=== PATIENT | male | born 1945 | race Caucasian/White ===

== ENCOUNTER 2017-01-05 12:19 | Day surgery (SDC) | payer MEDICARE, BC ==
[2017-01-02 14:59] LABS: BLOOD UREA NITROGEN 18 mg/dL (7-18)
[2017-01-02 15:02] LABS: ASPARTATE AMINO TRANSFERASE 27 U/L (15-37)
[~2017-01-05] VITALS: Ht 170.2 cm; Wt 81.0 kg
[~2017-01-05 12:19] MED LIST: ALLO300T PO; AZEL137S4 NAS; BUPIVACAINE/PF 0.5% ONE; BUPIVACAINE/PF-EPI 0.5% 1:200K ONE; FENTANYL PF 250 MCG/5ML ONE; FLUT1DIS3 INH; LIDOCAINE/PF 1%-EPI 1:200K, 30ML ONE; LOSA1TAB17 PO; PRAV10TA2 PO; SERT50TA5 PO
[2017-01-05 12:45] VITALS: BP 169/95
[2017-01-05] MEDS ORDERED: LIDOCAINE 1%, 2ML ONE (12:53)
[2017-01-05] MEDS ORDERED: OXYcodone 5 MG/5 ML ORAL.SOL UDC PO PRN (13:30)
[2017-01-05] MEDS ORDERED: FENTANYL PF 100 MCG/2ML IV PRN (13:30)
[2017-01-05] MEDS ORDERED: hydrALAzine 20 MG/ML, 1ML IV PRN (13:30)
[2017-01-05] MEDS ORDERED: LABETALOL 5MG/ML, 20ML IV PRN (13:30)
[2017-01-05] MEDS ORDERED: ACETAMINOPHEN 325 MG TABLET PO PRN (13:30)
[2017-01-05] MEDS ORDERED: EPHEDRINE 50 MG/ML, 1ML IVPush PRN (13:30)
[2017-01-05] MEDS ORDERED: ONDANSETRON 2MG/ML, 2ML IVPush PRN (13:30)
[2017-01-05] MEDS ORDERED: METOPROLOL 1 MG/ML, 5ML IV PRN (13:30)
[2017-01-05] MEDS ORDERED: HYDROmorphone 1 MG/ML, 1ML IV PRN (13:30)
[2017-01-05] MEDS ORDERED: ALBUTEROL SULFATE 2.5 MG/3 ML NPPB PRN (13:30)
[2017-01-05] MEDS ORDERED: GLYCOPYRROLATE 0.2MG/1ML ONE (13:46)
[2017-01-05] MEDS ORDERED: NEOSTIGMINE 1 MG/ML, 10ML ONE (13:46)
[2017-01-05] MEDS ORDERED: CEFAZOLIN 1,000 MG ONE (13:46)
[2017-01-05] MEDS ORDERED: DEXAMETHASONE 4 MG/ML, 5ML ONE (13:46)
[2017-01-05] MEDS ORDERED: ROCURONIUM 10 MG/ML ONE (13:46)
[2017-01-05] MEDS ORDERED: METOCLOPRAMIDE 5 MG/ML, 2ML ONE (13:46)
[2017-01-05] MEDS ORDERED: PROPOFOL 10 MG/ML, 20ML ONE (13:46)
[2017-01-05] MEDS ORDERED: ONDANSETRON 2MG/ML, 2ML ONE (13:46)
[2017-01-05] MEDS ORDERED: BUPIVACAINE/PF-EPI 0.5% 1:200K INFIL ONE (14:08)
[2017-01-05] MEDS ORDERED: LIDOCAINE 1%-EPI 1:100K, 30ML INFIL ONE (14:09)
[2017-01-05] MEDS ORDERED: OXYcodone 5 MG/5 ML ORAL.SOL UDC ONE (16:03)
[2017-01-05] MEDS ORDERED: ACETAMINOPHEN 650 MG/20.3 ML UDC ONE (16:03)
[2017-01-05] MEDS ORDERED: TEMPLATE NON-FORMULARY MED. (Azelastine Hcl Nasal 1 SPRAY) NAS SCH (21:00)
[2017-01-05] MEDS ORDERED: TEMPLATE NON-FORMULARY MED. (Fluticasone/Salmeterol** (Advair 250-50 Diskus**) 1 PUFF) INH SCH (21:00)
[2017-01-05] MEDS ORDERED: PRAVASTATIN SODIUM 10 MG PO SCH (21:00)
[2017-01-06] MEDS ORDERED: TEMPLATE NON-FORMULARY MED. (Losartan/Hydrochlorothiazide** (Losartan-Hctz 100-25 Mg Tab PO SCH (09:00)
[2017-01-06] MEDS ORDERED: ALLOPURINOL 300 MG TABLET PO SCH (09:00)
[2017-01-06] MEDS ORDERED: SERTRALINE 50MG TABLET PO SCH (09:00)
== END 2017-01-05 18:00 | disposition home or self-care (01) ==
LOC: OUT 12:19
PROVIDERS: ATTEND Orthopaedic Surgery
DX: S46.011A Strain of muscle(s) and tendon(s) of the rotator cuff of right shoulder, initial encounter (principal); S43.431A Superior glenoid labrum lesion of right shoulder, initial encounter; M19.011 Primary osteoarthritis, right shoulder; M65.811 Other synovitis and tenosynovitis, right shoulder; S46.211A Strain of muscle, fascia and tendon of other parts of biceps, right arm, initial encounter; M75.41 Impingement syndrome of right shoulder; I10 Essential (primary) hypertension; E78.5 Hyperlipidemia, unspecified; J45.909 Unspecified asthma, uncomplicated; I47.1 Supraventricular tachycardia; Z88.6 Allergy status to analgesic agent; Z87.891 Personal history of nicotine dependence; Z72.89 Other problems related to lifestyle; Z82.49 Family history of ischemic heart disease and other diseases of the circulatory system; Z82.61 Family history of arthritis; X50.9XXA Other and unspecified overexertion or strenuous movements or postures, initial encounter; Y93.73 Activity, racquet and hand sports; Y92.9 Unspecified place or not applicable; Y99.9 Unspecified external cause status
CPT/HCPCS: 29823; 29824; 29826; 29827; 29828; 36415; 80053; 93005; J0690; J1100; J2405; J2704; J2710; J2765; J3010; J3490

== ENCOUNTER 2019-08-02 12:00 | Day surgery (SDC) | payer BC, MEDICARE ==
[2019-08-01 14:14] LABS: ALANINE AMINOTRANSFERASE 38 U/L (12-78); ALBUMIN 3.9 g/dL (3.4-5.0); ANION GAP 9 mmol/L (5-15); CALCIUM 9.7 mg/dL (8.5-10.1); CHLORIDE 106 mmol/L (98-107); CREATININE 0.98 mg/dL (0.7-1.3)
[2019-08-01 14:16] LABS: ALKALINE PHOSPHATASE 82 U/L (45-117); BILIRUBIN,TOTAL 0.5 mg/dL (0.2-1.0); TOTAL PROTEIN 7.3 g/dL (6.4-8.2)
[~2019-08-02] VITALS: Ht 170.2 cm; Wt 79.6 kg
[~2019-08-02 12:00] MED LIST changes: +ASPI81TA45 PO; +B CO1TAB14 PO; -BUPIVACAINE/PF 0.5% ONE; -BUPIVACAINE/PF-EPI 0.5% 1:200K ONE; +CAYE450C4 PO; +CETI-158 PO; +CHOL200024 PO; +CHRO1TAB7 PO; +CIDE600C PO; +CINNAMON PO; +COCO1000 PO; +CYAN50008 PO; -FENTANYL PF 250 MCG/5ML ONE; +FISH OIL PO; +FLAX10004 PO; +GRAP50CA3 PO; +INDO50CA15 PO; -LIDOCAINE/PF 1%-EPI 1:200K, 30ML ONE; -LOSA1TAB17 PO; +LOSA1TAB22 PO; +MAGN1POW13 PO; +POTA10TA31 PO; +SERT50TA28 PO; -SERT50TA5 PO; +TURMERIC PO; +UBID100C10 PO
[2019-08-02] MEDS ORDERED: ACETAMINOPHEN 500 MG TABLET PO STA (12:15)
[2019-08-02] MEDS ORDERED: LACTATED RINGERS 1,000 ML IV ONE (12:16)
[2019-08-02 12:33] VITALS: BP 129/75
[2019-08-02] MEDS ORDERED: LIDOCAINE-MPF 2% ,5ML ONE (13:05)
[2019-08-02] MEDS ORDERED: SUCCINYLCHOLINE 20 MG/ML, 10ML ONE (13:05)
[2019-08-02] MEDS ORDERED: FENTANYL PF 250 MCG/5ML ONE (13:05)
[2019-08-02] MEDS ORDERED: PROPOFOL 10 MG/ML, 20ML ONE (13:05)
[2019-08-02] MEDS ORDERED: ONDANSETRON 2MG/ML, 2ML ONE ×2 (13:05→15:41)
[2019-08-02] MEDS ORDERED: DEXAMETHASONE 4 MG/ML, 1ML ONE ×2 (13:05)
[2019-08-02] MEDS ORDERED: OXYMETAZOLINE NASAL SPRAY 0.05%, 15ML ONE (14:15)
[2019-08-02] MEDS ORDERED: LIDOCAINE 1%-EPI 1:100K, 20ML ONE ×2 (14:15→15:27)
[2019-08-02] MEDS ORDERED: COCAINE TOPICAL SOLN 4%, 4ML ONE ×2 (14:15→14:56)
[2019-08-02] MEDS ORDERED: THROMBIN 5,000 UNIT VIAL TP ONE (14:15)
[2019-08-02] MEDS ORDERED: NEOSPORIN OINT, 15GM ONE (14:15)
[2019-08-02] MEDS ORDERED: FLUORESCEIN SODIUM 500 MG/5 ML ONE (14:15)
[2019-08-02] MEDS ORDERED: EPHEDRINE 50 MG/ML, 1ML IVPush PRN (14:30)
[2019-08-02] MEDS ORDERED: MEPERIDINE/PF 25MG/ML,1ML IVPush PRN (14:30)
[2019-08-02] MEDS ORDERED: HYDROmorphone 2 MG/ML, 1ML IVPush PRN (14:30)
[2019-08-02] MEDS ORDERED: PROMETHAZINE 25 MG/ML, 1ML IV PRN (14:30)
[2019-08-02] MEDS ORDERED: LABETALOL 5MG/ML, 20ML IV PRN (14:30)
[2019-08-02] MEDS ORDERED: FENTANYL PF 100 MCG/2ML IV PRN (14:30)
[2019-08-02] MEDS ORDERED: OXYcodone 5 MG/5 ML ORAL.SOL UDC PO PRN (14:30)
[2019-08-02] MEDS ORDERED: hydrALAzine 20 MG/ML, 1ML IV PRN (14:30)
[2019-08-02] MEDS ORDERED: ONDANSETRON 2MG/ML, 2ML IV PRN (14:30)
[2019-08-02] MEDS ORDERED: CEFAZOLIN 1,000 MG ONE (14:41)
[2019-08-02] MEDS ORDERED: EPHEDRINE 50 MG/ML, 1ML ONE (14:57)
[2019-08-02] MEDS ORDERED: KETOROLAC 30 MG/1 ML ONE (14:57)
[2019-08-02] MEDS ORDERED: FENTANYL PF 100 MCG/2ML ONE (16:43)
[2019-08-02] MEDS ORDERED: DIPHENHYDRAMINE 50 MG/ML, 1ML IVPush PRN (19:30)
[2019-08-02] MEDS ORDERED: ONDANSETRON 2MG/ML, 2ML IVPush PRN (19:30)
[2019-08-02] MEDS ORDERED: CYANOCOBALAMIN 1,000 MCG TABLET PO SCH (21:00)
[2019-08-02] MEDS ORDERED: PRAVASTATIN 20 MG TABLET PO SCH (21:00)
[2019-08-02] MEDS ORDERED: SODIUM CHLORIDE NASAL SPRAY 45ML BOTTLE NAS SCH (21:00)
[2019-08-03] MEDS ORDERED: CHOLECALCIFEROL 1,000 UNIT TABLET PO SCH (09:00)
[2019-08-03] MEDS ORDERED: LOSARTAN 50MG TABLET PO SCH (09:00)
[2019-08-03] MEDS ORDERED: POTASSIUM CHLORIDE 10 MEQ TABLET.ER PO SCH (09:00)
[2019-08-03] MEDS ORDERED: HYDROCHLOROTHIAZIDE 25 MG TABLET PO SCH (09:00)
[2019-08-03] MEDS ORDERED: ALLOPURINOL 300 MG TABLET PO SCH (09:00)
[2019-08-03] MEDS ORDERED: CETIRIZINE 10 MG TABLET PO SCH (09:00)
[2019-08-04] MEDS ORDERED: MULTIVITS,STRESS FORMULA 1 TABLET PO SCH (09:00)
== END 2019-08-02 21:23 | disposition home or self-care (01) ==
LOC: OUT 12:00 → 4NE 18:55 → OUT 21:23
PROVIDERS: ATTEND Specialist
DX: J32.2 Chronic ethmoidal sinusitis (principal); J34.2 Deviated nasal septum; J34.3 Hypertrophy of nasal turbinates; J34.89 Other specified disorders of nose and nasal sinuses; G47.33 Obstructive sleep apnea (adult) (pediatric); I10 Essential (primary) hypertension; E78.5 Hyperlipidemia, unspecified; M10.9 Gout, unspecified; F41.9 Anxiety disorder, unspecified; Z79.82 Long term (current) use of aspirin; Z79.899 Other long term (current) drug therapy; Z88.5 Allergy status to narcotic agent
CPT/HCPCS: 30465; 30520; 30802; 31240; 31253; 31267; 36415; 80053; 88304; 88311; 93005; C1763; C1776; J0330; J0690; J1100; J1885; J2405; J2704; J3010; J3490; G0378

== ENCOUNTER 2020-12-17 08:55 | Observation (INO) | payer MEDICARE ==
[~2020-12-17] VITALS: Ht 170.2 cm; Wt 76.5 kg
[~2020-12-17 08:55] MED LIST changes: -CYAN50008 PO; +CYAN50009 PO
[2020-12-17] MEDS ORDERED: SERT100T32 PO (09:38)
[2020-12-17] MEDS ORDERED: AMLO-150 PO (09:38)
[2020-12-17 09:46] LABS: BASOPHILS % (AUTO) 0 % (0-1); EOSINOPHILS % (AUTO) 3 % (1-7); LYMPHOCYTES % (AUTO) 30 % (22-44); MEAN CORPUSCULAR HEMOGLOBIN 30.9 pg (27.5-34.5); MEAN CORPUSCULAR HGB CONC 33.8 g/dL (33.2-36.2); MEAN PLATELET VOLUME 8.2 fL (7.4-10.4); MONOCYTES % (AUTO) 11 % (2-9); NEUTROPHILS % (AUTO) 56 % (42-75); PLATELET COUNT 213 x10^3/uL (130-400); RED BLOOD COUNT 4.86 x10^6/uL (4.38-5.82); RED CELL DISTRIBUTION WIDTH 13.2 % (9.4-14.8)
[2020-12-17 09:56] LABS: ANION GAP 3 mmol/L (5-15); CALCIUM 9.6 mg/dL (8.5-10.1); CHLORIDE 106 mmol/L (98-107); CREATININE 0.86 mg/dL (0.7-1.3)
[2020-12-17 10:05] LABS: MD SCAN
[2020-12-17] MEDS ORDERED: MIDAZOLAM 1 MG/ML, 2ML ONE (10:27)
[2020-12-17] MEDS ORDERED: FENTANYL PF 100 MCG/2ML ONE ×3 (10:27→12:58)
[2020-12-17] MEDS ORDERED: LIDOCAINE 2%, 20ML ONE (10:27)
[2020-12-17] MEDS ORDERED: MIDAZOLAM 1 MG/ML, 5ML ONE ×2 (12:54→12:58)
[2020-12-17] MEDS ORDERED: LIDOCAINE 1%, 20ML ONE (12:54)
[2020-12-17] MEDS ORDERED: BIVALIRUDIN 250 MG ONE ×2 (12:54→12:58)
[2020-12-17] MEDS ORDERED: PRASUGREL 10 MG TABLET ONE ×2 (12:54→12:59)
[2020-12-17] MEDS ORDERED: TICAGRELOR 90 MG TABLET ONE (13:08)
[2020-12-17] MEDS ORDERED: BIVALIRUDIN 250 MG in SODIUM CHLORIDE 0.9% 50 ML IV SCH (14:00)
[2020-12-17] MEDS ORDERED: SODIUM CHLORIDE 0.9% 1,000 ML IV SCH (14:00)
[2020-12-17] MEDS ORDERED: ZOLPIDEM 5MG TABLET PO PRN (14:00)
[2020-12-17] MEDS ORDERED: CETIRIZINE 10 MG TABLET PO PRN (14:30)
[2020-12-17] MEDS: INDOMETHACIN 50 MG CAPSULE PO SCH ×2 (17:32→21:01)
[2020-12-17 19:05] VITALS: BP 124/81
[2020-12-17] MEDS ORDERED: PRAVASTATIN 20 MG TABLET PO SCH (21:00)
[2020-12-17] MEDS: TICAGRELOR 90 MG TABLET PO SCH (21:01)
[2020-12-17] MEDS ORDERED: MELATONIN 5 MG TABLET PO SCH (21:30)
[2020-12-18 00:33] VITALS: BP 111/72
[2020-12-18 05:02] LABS: ANION GAP 4 mmol/L (5-15); CALCIUM 9.2 mg/dL (8.5-10.1); CHLORIDE 107 mmol/L (98-107)
[2020-12-18 07:23] VITALS: BP 135/82
[2020-12-18] MEDS ORDERED: TICA90TA PO (08:16)
[2020-12-18] MEDS ORDERED: HYDROCHLOROTHIAZIDE 25 MG TABLET PO SCH (09:00)
[2020-12-18] MEDS ORDERED: SERTRALINE 100MG TABLET PO SCH (09:00)
[2020-12-18] MEDS ORDERED: AMLODIPINE 5 MG TABLET PO SCH (09:00)
[2020-12-18] MEDS ORDERED: ALLOPURINOL 300 MG TABLET PO SCH (09:00)
[2020-12-18] MEDS ORDERED: ASPIRIN 81 MG TABLET EC PO SCH ×2 (09:00)
[2020-12-18] MEDS ORDERED: POTASSIUM CHLORIDE 10 MEQ TABLET.ER PO SCH (09:00)
[2020-12-18] MEDS ORDERED: LOSARTAN 100 MG TAB PO SCH (09:00)
[2020-12-18] MEDS: INDOMETHACIN 50 MG CAPSULE PO SCH (09:29)
[2020-12-18] MEDS: TICAGRELOR 90 MG TABLET PO SCH (09:30)
== END 2020-12-18 11:26 | disposition home or self-care (01) ==
LOC: CACL 08:55 → 5SO 14:04 → CACL 19:17 → DCLOUNGE 12-18 11:14
PROVIDERS: ADMIT Internal Medicine Cardiovascular Disease; ATTEND Internal Medicine Cardiovascular Disease
DX: I25.110 Atherosclerotic heart disease of native coronary artery with unstable angina pectoris (principal); R93.1 Abnormal findings on diagnostic imaging of heart and coronary circulation; I10 Essential (primary) hypertension; F10.10 Alcohol abuse, uncomplicated; Z79.899 Other long term (current) drug therapy
CPT/HCPCS: 36415; 80048; 85025; 93005; 93454; 93458; 99156; 99157; C1725; C1760; C1769; C1874; C1887; C1894; C9600; C9601; G0378; J0583; J2250; J3010; J3490; Q9967

== ENCOUNTER → 2021-02-18 | Outpatient (CLI) | payer MEDICARE ==
[~2021-02-18] MED LIST changes: +AMLO-150 PO; +REGADENOSON 0.4 MG/5 ML SYRINGE ONE; +SERT100T32 PO; +TICA90TA PO
== END | disposition home or self-care (01) ==
LOC: CFH 07:27
PROVIDERS: ATTEND Nurse Practitioner Family
DX: R93.1 Abnormal findings on diagnostic imaging of heart and coronary circulation (principal); R07.9 Chest pain, unspecified
CPT/HCPCS: 78452; 93017; A9502; J2785